=== PATIENT | male | born 1980 | race Caucasian/White ===

== ENCOUNTER 2016-12-15 08:34 | Emergency (ER) | payer MEDICAID ==
[~2016-12-15] VITALS: Wt 91.0 kg
--- NOTE | 2016-12-15 08:59 | ERD ---
ER Documentation Chief Complaint Date/Time DATE: 12/15/16 TIME: 08:57 Chief Complaint LEFT BIG TOE PAIN AFTER FALL HPI 36-year-old male otherwise healthy presents with left big toe pain after hitting it into the stairs 3 days ago. He describes bruising, achy pain that is distal, moderate, worse with weightbearing, better at rest. No trouble walking. No weakness. ROS All systems reviewed and are negative except as per history of present illness. Medications Home Meds Active Scripts Ibuprofen* (Motrin*) 600 Mg Tab, 600 MG PO Q6, #30 TAB Prov:FELICIA GUTIERREZ PA-C 12/15/16 Physical Exam Vitals Vital Signs Date Time Temp Pulse Resp B/P Pulse Ox O2 Delivery O2 Flow Rate FiO2 12/15/16 08:37 98.0 61 18 126/78 99 Physical Exam General: Well-developed, well-nourished. The patient appears in no acute distress. HEENT: Head is normocephalic, atraumatic. No scleral icterus. Neck: Supple. Nontender. Lungs: Clear to auscultation. Normal air movement. Heart: Regular rate and rhythm. S1 and S2 are normal. No murmurs, gallops, or rubs. Abdomen: Nondistended. Extremities: Ecchymosis the top of the left great toe, nailbed is intact. TTP over the proximal phalanx. Capillary refill less than 2 seconds. Patient is able to flex and extend the toe. Neurologic: Alert and oriented 3. No focal deficits. Normal speech and gait. Skin: Normal turgor. No rash or lesions. Results 24 hrs DIAGNOSTIC IMAGING REPORT Patient: MEGHAN RODRIGUEZ : 1980 Age: 36 Sex: M MR #: [id number] DOS: 12/15/16 0854 Ordering MD: FELICIA GUTIERREZ PA-C Location: [facility] Room/Bed: PROCEDURE: XR left Great Toe. CLINICAL INDICATION: Status post fall. Pain. TECHNIQUE: 2 views of the left great toe are available for review COMPARISON: No prior studies are available for comparison. FINDINGS: Study is limited as only 2 views are provided. There is a mildly displaced fracture of the first proximal phalanx. Alignment remains intact. Joint spaces are well maintained. There is mild soft tissue swelling. IMPRESSION: 1. First proximal phalanx fracture. RPTAT: KK .Yuri Goddard MD, Date Time Electronically viewed and signed by .Yuri Goddard MD, on 2016 09:36 .B/ Current Medications Medications (Trade) Dose Ordered Sig/Ney Route PRN Reason Start Time Stop Time Status Last Admin Dose Admin Ibuprofen (Motrin) 600 mg ONCE ONCE PO 12/15/16 09:00 12/15/16 09:01 DC 12/15/16 09:11 Procedures/MDM ED COURSE: Patient was given ibuprofen for the pain. His left great toe was splinted with kayleigh tape, and he was placed in a postop shoe. Splint Assessment: Neurovascularly intact post splint placement with good fit. Medical decision makin yo male comes to the ER with left great toe fracture , due to an injury about 3 days ago. There is a fracture of the proximal phalanx, this appears to be a closed fracture. He is neurovascularly intact and was advised to follow-up with an orthopedist within the next week. Departure Diagnosis: Primary Impression: Toe fracture, left Condition: Good FELICIA GUTIERREZ PA-C Dec 15, 2016 08:58
[2016-12-15] MEDS ORDERED: IBUPROFEN 600 MG TAB PO ONE (09:00)
--- NOTE | 2016-12-15 09:36 | RADRPT ---
PROCEDURE: XR left Great Toe. CLINICAL INDICATION: Status post fall. Pain. TECHNIQUE: 2 views of the left great toe are available for review COMPARISON: No prior studies are available for comparison. FINDINGS: Study is limited as only 2 views are provided. There is a mildly displaced fracture of the first pr oximal phalanx. Alignment remains intact. Joint spaces are well maintained. There is mild soft ti ssue swelling. IMPRESSION: 1. First proximal phalanx fracture. RPTAT: KK .Yuri Goddard MD, MD Date Time Electronically viewed and signed by .Yuri Goddard MD, on 12/15/2016 09:36 .B/
[2016-12-15] MEDS ORDERED: IBUP-1542 PO (09:48)
== END 2016-12-15 10:09 | disposition home or self-care (01) ==
LOC: FTE 08:34
DX: S92.412A Displaced fracture of proximal phalanx of left great toe, initial encounter for closed fracture (principal); W22.8XXA Striking against or struck by other objects, initial encounter; Y92.9 Unspecified place or not applicable
CPT/HCPCS: 73660; Z7502; Z7610

== ENCOUNTER 2018-11-13 00:26 | Emergency (ER) | payer MEDICAID, OTHER ==
[~2018-11-13] VITALS: Ht 172.7 cm; Wt 103.0 kg
[~2018-11-13 00:26] MED LIST: IBUP-1542 PO
[2018-11-13 00:35] VITALS: Ht 172.7 cm; Wt 103.0 kg
--- NOTE | 2018-11-13 02:28 | ERD ---
ER Documentation Chief Complaint Chief Complaint left chest pressure pain X1 week on and off,pressure UGALDE HPI 38-year-old male presenting with left-sided chest pain that has been intermittent for the past 1 week. The pain is aching, nonradiating, nonexertional, moderate in intensity, lasting for about 4 hours each time. He has no associated shortness of breath, nausea, vomiting, diaphoresis. No fevers, chills, cough, hemoptysis. He is a project construction manager. The pain is sometimes worse with movement and touching the area. He takes Advil for the pain with some improvement. ROS All systems reviewed and are negative except as per history of present illness. Medications Home Meds Active Scripts Ibuprofen* (Motrin*) 600 Mg Tab, 600 MG PO Q6, #30 TAB Prov:FELICIA GUTIERREZ PA-C 12/15/16 Allergies Allergies: Coded Allergies: No Known Allergy (Unverified , 11/13/18) PMhx/Soc History of Surgery: No Anesthesia Reaction: No Hx Neurological Disorder: No Hx Respiratory Disorders: No Hx Cardiac Disorders: No Hx Psychiatric Problems: No Hx Miscellaneous Medical Probl: No Hx Alcohol Use: Yes (rarely) Hx Substance Use: No Hx Tobacco Use: No Smoking Status: Never smoker FmHx Family History: No diabetes, No coronary disease Physical Exam Vitals Vital Signs Date Temp Pulse Resp B/P (MAP) Pulse Ox O2 O2 Flow FiO2 Time Delivery Rate 11/13/18 97.6 65 18 135/86 98 00:35 (102) Physical Exam Const: No acute distress Head: Atraumatic Eyes: Normal Conjunctiva ENT: Normal External Ears, Nose and Mouth. Neck: Full range of motion. No meningismus. Resp: Clear to auscultation bilaterally Cardio: Regular rate and rhythm, no murmurs Abd: Soft, non tender, non distended. Normal bowel sounds Skin: No petechiae or rashes Back: No midline or flank tenderness Ext: No cyanosis, or edema Neur: Awake and alert Psych: Normal Mood and Affect Result Diagram: 11/13/18 0110 11/13/18 0110 Results 24 hrs Laboratory Tests Test 11/13/18 01:10 White Blood Count 10.0 10^3/ul Red Blood Count 4.63 10^6/ul Hemoglobin 13.7 g/dl Hematocrit 41.5 % Mean Corpuscular Volume 89.6 fl Mean Corpuscular Hemoglobin 29.6 pg Mean Corpuscular Hemoglobin Concent 33.0 g/dl Red Cell Distribution Width 12.6 % Platelet Count 241 10^3/UL Mean Platelet Volume 11.2 fl Immature Granulocytes % 0.200 % Neutrophils % 44.6 % Lymphocytes % 41.5 % Monocytes % 8.5 % Eosinophils % 4.7 % Basophils % 0.5 % Nucleated Red Blood Cells % 0.0 /100WBC Immature Granulocytes # 0.020 10^3/ul Neutrophils # 4.4 10^3/ul Lymphocytes # 4.1 10^3/ul Monocytes # 0.9 10^3/ul Eosinophils # 0.5 10^3/ul Basophils # 0.1 10^3/ul Nucleated Red Blood Cells # 0.0 10^3/ul Sodium Level 143 mmol/L Potassium Level 3.9 mmol/L Chloride Level 106 mmol/L Carbon Dioxide Level 27 mmol/L Anion Gap 10 Blood Urea Nitrogen 19 mg/dl Creatinine 0.89 mg/dl Est Glomerular Filtrat Rate mL/min > 60 mL/min Glucose Level 142 mg/dl Calcium Level 8.9 mg/dl Troponin I < 0.012 ng/ml Procedures/MDM EMERGENT LABS AND DIAGNOSTIC STUDIES: Lab Results above were reviewed and interpreted by me. CBC: no anemia or evidence of infection BMP: No evidence of clinically significant electrolyte abnormality, acidosis, renal failure, hypoglycemia Troponin within normal limits, not indicative of cardiac ischemia 12-lead EKG was interpreted by Mathew Antony MD: Normal Sinus Rhythm Normal axis Normal intervals No acute ST or T wave changes suggestive of acute ischemia or STEMI. Radiology Results as interpreted by Radiology below were reviewed by SMario Antony MD: Chest x-ray shows no acute significant abnormalities Initial Nursing notes reviewed. Previous Medical Records requested via the Electronic Health Record. EMERGENCY DEPARTMENT COURSE / MEDICAL DECISION MAKING: The patient presents with chest pain. Vitals are stable. I considered pulmonary embolism, aortic dissection, pneumothorax among other diagnoses. Evaluation for acute coronary syndrome was performed. The HEART score was utilized for risk stratification and found to be <3. Repeat EKG and troponin not indicated as the symptoms have been going on for 1 week. I have a very low suspicion for ACS, pericarditis, PE, dissection. Based on this evaluation the patient's risk of major adverse cardiac events is <2%. Shared decision making occurred with patient and the decision has been made to discharge the patient for outpatient evaluation within 72 hours. Patient instructed to arrange follow up with PCP in the next 2 days and return to the ED for any new or worsening symptoms. Patient's blood pressure was elevated (>120/80) but appears stable without evidence of hypertensive emergency or urgency. The patient was counseled about the risks of hypertension and urged to pursue outpatient monitoring and therapy within a week with their primary care physician. Departure Diagnosis: Primary Impression: Chest pain Chest pain type: unspecified Qualified Codes: R07.9 - Chest pain, unspecified Condition: Stable EKSANDY DAWKINS MD Nov 13, 2018 02:28
[2018-11-13 02:32] VITALS: BP 116/76; PULSE 66; RESP 16
== END 2018-11-13 02:41 | disposition home or self-care (01) ==
LOC: E/R 00:26
DX: R07.9 Chest pain, unspecified (principal)
CPT/HCPCS: 36415; 71045; 80048; 84484; 85025; 93005; Z7502